=== PATIENT | female | born 1960 | race Caucasian/White ===

== ENCOUNTER 2016-12-08 19:06 | Emergency (ER) | payer OTHER ==
--- NOTE | ~2016-12-08 | CR117 ---
[facility] A Service of [facility] RADIOLOGY TEXT RESULTS PATIENT: TERRI MILIAN LOCATION: SED : 62 UNIT #: [id number] AGE: [address]: Margarita Frias APRN SEX: F ORDER DR: [id number] [address] [address] [id number] E MR#: [id number] Acc #: [id number] NAME: TERRI MILIAN : 1960 SEX: F STUDY DATE/TIME: 12/08/2016 19:33 UNIT: SED ROOM: STUDY DESCRIPTION: CR Finger 2 View Thumb Rt Attending Physician: Margarita Frias A.P.R.N. Ordering Physician: Margarita Llamas A.P.R.N. MEDICAL IMAGING REPORT This report is preliminary unless electronic signature is present. EXAM 3 views right thumb 12/08/2016 HISTORY Right thumb pain which began 3 weeks ago. No known injury. COMPARISON None. FINDINGS There is iceo-im-rnhhbhud degenerative change of the first interphalangeal joint manifest as joint space narrowing and mild marginal osteophyte formation. No erosive changes are identified. There is also mild degenerative change of the first metacarpal-phalangeal joint. No osteolytic or osteoblastic abnormalities. No significant subchondral cystic change. No radiographic evidence of osteomyelitis. No retained radiopaque foreign body. IMPRESSION 1. 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 2. No acute findings in the right thumb. Dictated by... Marisela Schroeder M.D. THIS IS AN ELECTRONICALLY VERIFIED REPORT Marisela Schroeder M.D. at 12/09/2016 7:11 AM [facility] A Service of [facility] RADIOLOGY TEXT RESULTS PATIENT: TERRI MILIAN LOCATION: SED : 62 UNIT #: [id number] AGE: [address]: Margarita Frias APRN SEX: F ORDER DR: TD: 12/08/2016 23:43 JOB #: [id number] MEDICAL IMAGING REPORT Page 1 of 1
[~2016-12-08 19:06] MED LIST: ALBUTEROL17 GM; ATENOLOL50 MG; CLARITIN10 M4; DULERA 100 MCG/13 GM; FLEXERIL10 MG PO; GABAPENTIN400 M2 PO; GLUCOTROL10 MG PO; JANUVIA; LOPID600 MG; LORTAB 5/500 TA1 TA1 PO; MICROZIDE12.5 M1; OMEGA-31000 M1; OMEPRAZOLE20 M1 PO; POTASSIUM CHLO10 ME2
== END 2016-12-08 20:49 | disposition home or self-care (01) ==
LOC: SED 19:06
DX: S63.621A Sprain of interphalangeal joint of right thumb, initial encounter (principal); F17.210 Nicotine dependence, cigarettes, uncomplicated; K21.9 Gastro-esophageal reflux disease without esophagitis; J44.9 Chronic obstructive pulmonary disease, unspecified; Z88.2 Allergy status to sulfonamides; Z88.8 Allergy status to other drugs, medicaments and biological substances; Z79.899 Other long term (current) drug therapy; X58.XXXA Exposure to other specified factors, initial encounter; Y92.009 Unspecified place in unspecified non-institutional (private) residence as the place of occurrence of the external cause
CPT/HCPCS: 73140; 99283